=== PATIENT | male | born 1965 | race Caucasian/White ===

== ENCOUNTER 2019-07-20 11:55 | Emergency (ER) | payer BC ==
[~2019-07-20] VITALS: Ht 188 cm; Wt 98.9 kg
[2019-07-20] MEDS ORDERED: METFORMIN HCL500 M3 PO (12:02)
[2019-07-20] MEDS ORDERED: CRESTOR40 MG PO (12:02)
[2019-07-20] MEDS ORDERED: ZESTRIL10 MG PO (12:02)
[2019-07-20] MEDS ORDERED: XANAX 0.5 MG0.5 MG PO (12:02)
[2019-07-20] MEDS ORDERED: JARDIANCE25 MG PO (12:03)
[2019-07-20 12:49] LABS: ABSOLUTE MONOCYTES 0.7 thou/uL (0.0-1.2); ABSOLUTE NEUTROPHILS 7.3 thou/uL (1.6-8.1); BASOPHILS 0.4 %; EOSINOPHILS 0.4 %; HEMOGLOBIN 16.3 gm/dL (14.0-18.0); MCH 31.3 pg (26.0-34.0); MCHC 34.7 g/dL (28.0-37.0); MCV 90.2 fL (80.0-100.0); MONOCYTES 7.2 %; MPV 9.1 fl. (7.2-11.1); NUCLEATED RBCS 0 /100WBC; PLATELET COUNT* 255 thou/uL (150-400); RBC 5.21 mil/uL (4.50-6.00); RDW-CV 13.3 % (10.5-14.5); WBC 10.2 thou/uL (4.0-11.0)
[2019-07-20 12:54] LABS: CALCIUM 9.2 mg/dL (8.5-10.1); CREATININE 0.8 mg/dL (0.6-1.3)
[2019-07-20 13:01] LABS: ALBUMIN 4.5 g/dL (3.4-5.0); TOTAL BILIRUBIN 0.9 mg/dL (<0.1-1.0); TOTAL PROTEIN 8.3 g/dL (6.4-8.2)
[2019-07-20 15:33] LABS: URINE BILIRUBIN NEGATIVE (Negative); URINE BLOOD NEGATIVE (Negative); URINE CLARITY CLEAR; URINE COLOR YELLOW; URINE GLUCOSE-RANDOM 2+ (Negative); URINE KETONES 2+ (Negative); URINE LEUKOCYTES-REFLEX NEGATIVE (Negative); URINE NITRITE-REFLEX NEGATIVE (Negative); URINE PROTEIN NEGATIVE (Negative); URINE SPECIFIC GRAVITY 1.025 (1.005-1.030); URINE UROBILINOGEN 0.2 E.U./dl (0.2-1.0)
[2019-07-20 16:01] VITALS: BP 118/77
--- NOTE | 2019-07-21 16:20 | EKG ---
[place] [address] ELECTROCARDIOGRAM REPORT Name: OBIE DELEON Room: [facility]#: [id number] Admission: 07/20/19 Attend Phys: Discharge: 07/20/19 Date of : 67 Date of Service: 07/20/19 1157 Report #: [id number] THIS REPORT FOR: //name// [facility] ED Test Date: 2019-07-20 Test Time: 11:57:10 Pat Name: OBIE DELEON Department: Room: Gender: Package Checker: [place] : 1965 Requested By: Krista Cosme Order Number: [id number] MD: Michael Mart Measurements Intervals [place] Rate: 102 P: 27 CA: 170 QRS: 44 QRSD: 81 T: 17 QT: 349 QTc: 455 Interpretive Statements Sinus tachycardia Baseline wander in lead(s) III,aVL No previous ECG available for comparison Electronically Signed On 07-21-2019 16:18:05 CDT by Michael Mart [email or web address] <ELECTRONICALLY SIGNED> By: Michael Mart MD, [facility] 07/21/19 1618 1157 1157 Michael Mart MD, [facility] /EPI
== END 2019-07-20 16:01 | disposition home or self-care (01) ==
LOC: M.ERS 11:55
PROVIDERS: Personal Emergency Response Attendant
DX: F41.9 Anxiety disorder, unspecified (principal); R07.89 Other chest pain; E78.5 Hyperlipidemia, unspecified; Z90.49 Acquired absence of other specified parts of digestive tract; Z86.73 Personal history of transient ischemic attack (TIA), and cerebral infarction without residual deficits; Z98.52 Vasectomy status